=== PATIENT | female | born 1940 | race Caucasian/White ===

== ENCOUNTER 2016-07-04 11:43 | Day surgery (SDC) | payer MEDICARE, MEDICAID ==
[~2016-07-04 11:43] MED LIST: CEFAZOLIN SODIUM 2 GRAM PREMIX 2 G in Premix (D5W) 100 ml 1 EACH IV PRN; LIDOCAINE 1% 2 ML VIAL ID PRN; SODIUM CHLORIDE 0.9% 1,000 ML IV SCH
[2016-07-04] MEDS ORDERED: CEFAZOLIN SODIUM 2 GRAM PREMIX 100 ML IV ONE (11:45)
[2016-07-04] MEDS ORDERED: LACTATED RINGERS 0 ML ONE (11:45)
[2016-07-04] MEDS ORDERED: IV START KIT ONE (11:45)
[2016-07-04] MEDS ORDERED: ROCURONIUM BROMIDE 10 MG/ML DOSE IV ONE ×10 (12:12)
[2016-07-04] MEDS ORDERED: PROPOFOL 20 ML IV ONE ×2 (12:12→15:05)
[2016-07-04] MEDS ORDERED: LIDOCAINE 2% (PRES FREE) 5 ML VIAL ONE (12:12)
[2016-07-04] MEDS ORDERED: MIDAZOLAM HCL 1 MG/ML 2ML VIAL ONE (12:15)
[2016-07-04] MEDS ORDERED: FENTANYL 250 MCG/5 ML AMP ONE (12:15)
[2016-07-04] MEDS ORDERED: LIDOCAINE 1% (PRES FREE) 30 ML VIAL ONE (12:23)
[2016-07-04] MEDS ORDERED: BUPIVACAINE 0.5% W/EPI SDV 30 ML VIAL ONE (12:23)
[2016-07-04] MEDS ORDERED: ONDANSETRON 4 MG/2ML 2 ML VIAL IV PRN ×2 (13:46→16:16)
[2016-07-04] MEDS ORDERED: NALOXONE HCL 0.4 MG/ML VIAL IV PRN (13:46)
[2016-07-04] MEDS ORDERED: ATROPINE SULFATE 0.4 MG/1 ML VIAL IV PRN (13:46)
[2016-07-04] MEDS ORDERED: HYDRALAZINE HCL 20 MG/1 ML VIAL IV PRN (13:46)
[2016-07-04] MEDS ORDERED: PROMETHAZINE HCL 25 MG/ML VIAL IM PRN (13:46)
[2016-07-04] MEDS ORDERED: HYDROMORPHONE HCL 1 MG/ML SYRINGE IV PRN (13:46)
[2016-07-04] MEDS ORDERED: MEPERIDINE 25 MG/ML SYRINGE IV PRN (13:46)
[2016-07-04] MEDS ORDERED: LABETALOL HCL 5 MG/ML 20ML VIAL IV PRN (13:46)
[2016-07-04] MEDS ORDERED: SODIUM CHLORIDE 0.9% 1,000 ML IV SCH (14:00)
[2016-07-04] MEDS ORDERED: EPHEDRINE SULFATE UD SYR 25 MG 25 MG/5 ML SYRINGE IV ONE (14:41)
[2016-07-04] MEDS ORDERED: PHENYLEPHRINE 10 MG/1 ML (1%) VIAL ONE (14:53)
[2016-07-04] MEDS ORDERED: ONDANSETRON 4 MG/2ML 2 ML VIAL ONE (15:11)
--- NOTE | 2016-07-04 15:16 | PCMBPN ---
Brief Post Op Note: Date of Procedure: 07/04/16 Preoperative Diagnosis: 1. Ventral hernia Postoperative Diagnosis: 1. Same Procedure: ventral hernia repair with mesh Surgeon: Laquita Raya MD Assist:Holley Anesthesia: GETA Findings: see dictation Condition: stable Complications: none IV Fluids: see anesthesia report Urine Output: not recorded Estimated Blood Loss: 10 mLs Tourniquet Time: N/A Specimens: N/A Implants: 10 x15 parietex mesh Drains: [N/A]
[2016-07-04] MEDS ORDERED: FENTANYL 100 MCG/2 ML VIAL ONE ×2 (15:30→16:20)
[2016-07-04] MEDS: FENTANYL 100 MCG/2 ML VIAL IV PRN ×4 (15:31→16:27)
[2016-07-04] MEDS ORDERED: PUMP TUBING ONE (16:40)
[2016-07-04] MEDS: SODIUM CHLORIDE 0.9% 1,000 ML IV SCH (16:44)
[2016-07-04] MEDS: HYDROMORPHONE HCL 1 MG/ML SYRINGE IV PRN ×2 (17:15→20:41)
[2016-07-04] MEDS: OXYCODONE/ACETAMINOPHEN 5/325 MG TABLET PO PRN ×2 (18:00→21:55)
[2016-07-04] MEDS ORDERED: INSULIN GLARGINE (DOSE) 100 UNITS/ML UNIT SUB-Q SCH (20:15)
[2016-07-04] MEDS: METOCLOPRAMIDE HCL 5 MG TABLET PO SCH (20:41)
[2016-07-05] MEDS: HYDROMORPHONE HCL 1 MG/ML SYRINGE IV PRN (01:06)
[2016-07-05] MEDS: SODIUM CHLORIDE 0.9% 1,000 ML IV SCH ×3 (01:09→12:40)
--- NOTE | 2016-07-05 07:21 | OP ---
Karl Cazares [id number] : 1940 DATE OF SERVICE: 07/04/2016 PREPROCEDURE DIAGNOSIS: Incisional hernia. POSTPROCEDURE DIAGNOSIS: Incisional hernia. PROCEDURE PERFORMED> Ventral hernia repair with mesh. SURGEON: Dr. Laquita Raya ANESTHESIA: General. FINDINGS: An 11 x 7 cm defect in the abdominal wall repaired with a 10 x 15 mesh. TECHNIQUE: The patient was brought back to the operating room and placed under general anesthesia. The abdomen was prepped and draped in sterile surgical fashion. Local anesthetic was placed around the umbilicus and a 15 blade scalpel was used to open the skin over top of the known incisional hernia just above the umbilicus. The hernia sac was readily visualized and it was very weak, but it was hard to find an edge to it, so I opened the hernia sac by lifting it up and pulling it away from the abdominal structures and carefully opening it. There was nothing attached to it at this area and once I was in I could feel underneath and feel for the hernia sidewalls. It actually was a large defect. There was weakness all the way laterally, mostly towards the left side and that would explain her complaints. The width of it was 11 cm and vertical it was 7 cm, so I opened up the incision for the 7 cm and then I felt out laterally to the edge and marked the edges of the hernia. I took down all the adhesions, so that I would be able to fix the mesh to this without having to worry about adhesions. She had mostly just omental adhesions to the abdominal wall, but she did have a little bit of bowel adhesions to the small bowel on the left lower quadrant. I did get a little bit of a serosal tear as I was taking the small bowel down in the left lower quadrant and so limbert the serosal tear with 3-0 Silk sutures. There was no real deep damage to the tissue, I was just being overly cautious. Once that was done, I took a Parietex 10 x 15 mesh, I figured that would be good overlap all around and then rather than open up a big cavity in the subcutaneous tissue to put the stitched, I decided the best thing would be to do a Vadim Twin to pull the stitches through the abdominal wall, so I placed 4 stitches on each side and left the area in the middle open as I figured I could reach that easily from the opening easily, so I placed the 4 stitches on each side, tied them to the mesh, then placed the mesh in the abdomen, and used an 11 blade to cut small incision for the Vadim Twin to pull the stitches through the fascia and when I started on the left side when I pulled up the 4 stitches there was a little bit of defect between the sutures, so I used 2-0 Prolene between the stitches and I could reach it from the opening, so I sutured from the mesh to the abdominal wall through my incision between those stitches and once I secured those I tied the Vadim Twin stitches that were through the muscle and the mesh felt like it was in good position at that point. Then I turned my attention to the right side and I took the Vadim Twin and pulled the stitches through and then used 2-0 Prolene between the stitches to make sure there is no defect for recurrence and then I sewed the middle of the mesh to the abdominal wall. Once this was done there was one area of defect that I put an additional 2-0 Prolene suture in and then it felt like good coverage. I irrigated the cavity with warm normal saline. I closed the hernia sac over the mesh, but a little tighter than it was previously and then closed the deep dermis with 3-0 Vicryl and closed the skin with 4-0 Monocryl. Steri-Strips were applied and the patient awakened and return to recovery room in stable condition. All needle, instrument, and sponge counts were correct at the end of the case. JOB: [id number]
[2016-07-05] MEDS ORDERED: LEVOTHYROXINE SODIUM 150 MCG TABLET PO SCH (07:30)
[2016-07-05] MEDS: INSULIN HUMAN NPH 70/REG 30 100 UNITS/1 ML UNIT (D0SE) SUB-Q SCH ×2 (07:57→09:03)
[2016-07-05] MEDS: METOCLOPRAMIDE HCL 5 MG TABLET PO SCH (07:59)
[2016-07-05] MEDS: OXYCODONE/ACETAMINOPHEN 5/325 MG TABLET PO PRN ×2 (08:27→12:40)
[2016-07-05 10:00] VITALS: BMI 37.0
[2016-07-05 14:18] VITALS: BP 131/54
== END 2016-07-05 15:15 | disposition home or self-care (01) ==
LOC: SDC 11:43 → MS 11:43 → UNDOADMIN 17:01 → MS 17:39 → SDC 07-05 15:15
PROVIDERS: ATTEND Surgery
PROC: 0WUF0JZ Supplement Abdominal Wall with Synthetic Substitute, Open Approach (ICD-10-PCS; principal; 2016-07-04)
DX: K43.2 Incisional hernia without obstruction or gangrene (principal); I25.10 Atherosclerotic heart disease of native coronary artery without angina pectoris; F32.9 Major depressive disorder, single episode, unspecified; E11.9 Type 2 diabetes mellitus without complications; K57.30 Diverticulosis of large intestine without perforation or abscess without bleeding; K20.9 Esophagitis, unspecified; I10 Essential (primary) hypertension; E03.9 Hypothyroidism, unspecified; M54.5 Low back pain; K55.9 Vascular disorder of intestine, unspecified; E78.00 Pure hypercholesterolemia, unspecified; H35.3190 Nonexudative age-related macular degeneration, unspecified eye, stage unspecified; M48.06 Spinal stenosis, lumbar region; Z88.2 Allergy status to sulfonamides; Z88.0 Allergy status to penicillin; Z88.8 Allergy status to other drugs, medicaments and biological substances; Z79.4 Long term (current) use of insulin; Z87.891 Personal history of nicotine dependence
CPT/HCPCS: 93005; 49560; 49568; J1170 ×3; J3010 ×3; J2370; A9270 ×7; J2250; J2001; J2405; J7030 ×3; J1815 ×2; J0690